=== PATIENT | male | born 1980 | race Caucasian/White ===

== ENCOUNTER 2018-05-21 01:05 | Emergency (ER) | payer OTHER | END 2018-05-21 01:45 | disposition home or self-care (01) | LOC: ERS 01:05 | DX: J20.9 Acute bronchitis, unspecified (principal) | CPT/HCPCS: 87804; 99283 ==

== ENCOUNTER 2019-10-16 08:52 | Emergency (ER) | payer OTHER | END 2019-10-16 10:49 | disposition home or self-care (01) | LOC: ERS 08:52 | DX: B35.4 Tinea corporis (principal); F41.9 Anxiety disorder, unspecified; E03.9 Hypothyroidism, unspecified | CPT/HCPCS: 99282 ==

== ENCOUNTER 2020-08-17 13:14 | Outpatient (CLI) | payer OTHER | END 2020-08-17 13:15 | disposition home or self-care (01) | LOC: BICMAMMO 13:14 | PROVIDERS: ATTEND Family Medicine | DX: Z13.820 Encounter for screening for osteoporosis (principal); E03.9 Hypothyroidism, unspecified; E29.1 Testicular hypofunction; T07.XXXA Unspecified multiple injuries, initial encounter | CPT/HCPCS: 77080 ==

== ENCOUNTER 2021-09-30 15:23 | Outpatient (CLI) | payer OTHER | END 2021-09-30 15:24 | disposition home or self-care (01) | LOC: LABBT 15:23 | PROVIDERS: ATTEND Specialist | DX: Z20.822 Contact with and (suspected) exposure to COVID-19 (principal) | CPT/HCPCS: U0003; U0005 ==

== ENCOUNTER 2021-10-01 09:08 | Day surgery (SDC) | payer OTHER ==
[2021-09-30 11:29] VITALS: BMI 28.3
[~2021-10-01 09:08] MED LIST: Magnevist 469MG/ML 20 ML VIAL ONE
[2021-10-01] MEDS ORDERED: fentaNYL Citrate/PF 100 MCG/2 ML SYRINGE ONE (11:51)
[2021-10-01] MEDS ORDERED: Midazolam HCl 2 mg/2 ml Vial ONE (11:51)
[2021-10-01] MEDS ORDERED: Famotidine/PF 20 mg/2ml Vial ONE (11:51)
[2021-10-01] MEDS ORDERED: HYDROmorphone 0.5 MG/0.5 ML SYRINGE ONE (11:51)
[2021-10-01] MEDS ORDERED: Lidocaine 2% PF 5 ML VIAL ONE (12:00)
[2021-10-01] MEDS ORDERED: Dexamethasone 20 MG/5 ML VIAL ONE (12:00)
[2021-10-01] MEDS ORDERED: Ondansetron PF 4 MG/2 ML Vial ONE (12:00)
[2021-10-01] MEDS ORDERED: PROPOFOL 200 MG/20 ML VIAL ONE (12:00)
== END 2021-10-01 14:14 | disposition home or self-care (01) ==
LOC: ULT 09:08
PROVIDERS: ATTEND Specialist
DX: M51.16 Intervertebral disc disorders with radiculopathy, lumbar region (principal); M47.26 Other spondylosis with radiculopathy, lumbar region; M47.815 Spondylosis without myelopathy or radiculopathy, thoracolumbar region; K76.0 Fatty (change of) liver, not elsewhere classified; G47.33 Obstructive sleep apnea (adult) (pediatric); M19.90 Unspecified osteoarthritis, unspecified site; N28.1 Cyst of kidney, acquired; Z79.890 Hormone replacement therapy; Z79.899 Other long term (current) drug therapy; Z98.890 Other specified postprocedural states
CPT/HCPCS: 72158; 76705; A9579; J1170; J2250; S0028

== ENCOUNTER 2021-10-05 16:33 | Emergency (ER) | payer OTHER ==
[2021-10-05] MEDS ORDERED: CEFAZOLIN 1 GM VIAL ONE (16:40)
[2021-10-05] MEDS ORDERED: Lidocaine 1% w/Epinephrine 1:100K 20 ML VIAL ONE (16:40)
[2021-10-05] MEDS ORDERED: Boostrix 0.5 ML (Tdap) VIAL ONE (16:40)
[2021-10-05] MEDS ORDERED: Fentanyl 100 MCG/2 ML VIAL ONE (17:38)
[2021-10-05] MEDS ORDERED: Bacitracin 1 PK ONE (18:23)
== END 2021-10-05 18:16 | disposition home or self-care (01) ==
LOC: ERS 16:33
DX: S41.112A Laceration without foreign body of left upper arm, initial encounter (principal); E03.9 Hypothyroidism, unspecified; Z79.899 Other long term (current) drug therapy; W45.8XXA Other foreign body or object entering through skin, initial encounter
CPT/HCPCS: 12032; 90471; 90715; 96374; 96375; J0690; J3010

== ENCOUNTER 2022-02-21 09:56 | Day surgery (SDC) | payer OTHER ==
[2022-02-21] MEDS ORDERED: PROPOFOL 200 MG/20 ML VIAL ONE (12:30)
[2022-02-21 13:14] VITALS: BMI 29.7
== END 2022-02-21 14:31 | disposition home or self-care (01) ==
LOC: MRI 09:56
PROVIDERS: ATTEND Specialist
DX: M50.11 Cervical disc disorder with radiculopathy, high cervical region (principal); M47.22 Other spondylosis with radiculopathy, cervical region; M48.02 Spinal stenosis, cervical region; M47.813 Spondylosis without myelopathy or radiculopathy, cervicothoracic region; E03.9 Hypothyroidism, unspecified; N40.0 Benign prostatic hyperplasia without lower urinary tract symptoms; N52.9 Male erectile dysfunction, unspecified; M19.90 Unspecified osteoarthritis, unspecified site; E55.9 Vitamin D deficiency, unspecified; Z87.891 Personal history of nicotine dependence; Z79.890 Hormone replacement therapy; Z79.899 Other long term (current) drug therapy; Z98.1 Arthrodesis status
CPT/HCPCS: 72141; J2704

== ENCOUNTER 2023-03-03 12:24 | Outpatient (CLI) | payer OTHER | END 2023-03-03 12:25 | disposition home or self-care (01) | LOC: BICMRI 12:24 | PROVIDERS: ATTEND Family Medicine | DX: M25.511 Pain in right shoulder (principal); S49.91XA Unspecified injury of right shoulder and upper arm, initial encounter; M75.51 Bursitis of right shoulder; M67.911 Unspecified disorder of synovium and tendon, right shoulder ==